=== PATIENT | male | born 1995 | race Caucasian/White ===

== ENCOUNTER 2016-06-03 11:24 | Emergency (ER) | payer OTHER ==
[2016-06-03] MEDS ORDERED: PROPARACAINE 0.5% 15 ML OPHT DROP ONE (12:00)
[2016-06-03 12:04] VITALS: BP 124/70; PULSE 60; RESP 18; TEMP 98.1; O2SAT 98
[2016-06-03] MEDS ORDERED: FLUORESCEIN SODIUM 1 MG STRIP OP ONE (12:28)
--- NOTE | 2016-06-03 12:53 | UCPHY ---
H & P Time Seen by Provider: 06/03/16 12:20 Patient Type: New HPI/ROS: The patient has right eye irritation for 24 hours since it with redness. He thinks this may be related to his contact. He slept in his contacts the night before the onset of the symptoms usually takes them at night. He noticed while skiing yesterday with contacts in place that the symptoms were starting in the persists today. He has not had these symptoms before. He removed his contact, for his glasses on him in for evaluation. ROS: No recent trauma to the eye. No feeling of foreign body. He reports no left eye symptoms. He has a significant vision changes associated with the symptoms. 5 point ROS is otherwise negative. Past Medical/Surgical History: No history of HSV Smoking Status: Current every day smoker Physical Exam: Physical Exam Vital signs are normal. General: No acute distress HEENT: Atraumatic. Eyes: Pupils equal and react to light. Extraocular motions are intact. There is conjunctival injection to the right eye. On slit-lamp exam after proparacaine anesthesia there is evidence of a small corneal ulcer approximately 1 mm located at 7 o'clock on the cornea. With fluorescein dye stain there is no stellate lesion are other abnormalities. Lids and lashes are normal. No foreign bodies. No hyphema. No hypopyon left eye exam is normal. Skin: No rash or pallor. Neuro: Alert Initial differential diagnosis: Corneal ulcer, corneal abrasion Constitutional: Initial Vital Signs Temperature (C) 36.7 C 06/03/16 12:01 Heart Rate 60 06/03/16 12:01 Respiratory Rate 18 06/03/16 12:01 Blood Pressure 124/70 H 06/03/16 12:01 O2 Sat (%) 98 06/03/16 12:01 O2 Delivery Mode Room Air Allergies/Adverse Reactions: No Known Allergies Allergy (Unverified 06/03/16 12:00) Home Medications: Medication Instructions Recorded Ofloxacin 0.3% [Ocuflox 0.3% (RX)] 2 drops EACHEYE Q1 #1 btl 06/03/16 Medical Decision Making ED Course/Re-evaluation: Findings are most consistent with corneal ulcer. I counseled the patient regarding this. He declined analgesics. However Nurse did place proparacaine drops prior to my evaluation the patient had relief with proparacaine. Departure - Departure Disposition: Home, Routine, Self-Care Clinical Impression: Corneal ulcer Qualifiers: Laterality: right Qualified Code(s): H16.001 - Unspecified corneal ulcer, right eye Condition: Good Instructions: Corneal Ulcer (ED) Additional Instructions: Diagnosis: Corneal ulcer Plan: Avoid wearing her glasses for the next week until symptoms resolve Ocuflox antibiotic drops as prescribed Ibuprofen Tylenol for discomfort as needed Follow up with Dr. Block for any ongoing symptoms despite treatment plan Referrals: NONE *PRIMARY CARE P,. [Primary Care Provider] - As per Instructions Danika Block MD [Medical Doctor] - As per Instructions Prescriptions: Ofloxacin 0.3% [Ocuflox 0.3% (RX)] 2 drops EACHEYE Q1 #1 btl - PQRS PQRS Measurement: NA
== END 2016-06-03 13:10 | disposition home or self-care (01) ==
LOC: CED 11:24
DX: H16.001 Unspecified corneal ulcer, right eye (principal)
CPT/HCPCS: G0463-PO